=== PATIENT | male | born 1990 | race African-American/Black ===

== ENCOUNTER 2023-08-28 21:04 | Emergency (ER) | payer OTHER ==
[2023-08-28] MEDS ORDERED: Ondansetron PF 4 MG/2 ML Vial ONE (23:22)
[2023-08-28] MEDS ORDERED: Morphine 4 MG/ML VIAL ONE (23:22)
[2023-08-28] MEDS ORDERED: Famotidine/PF 20 mg/2ml Vial ONE (23:23)
[2023-08-28 23:28] LABS: Bilirubin Neg (Negative); Blood, Urine Negative (Negative); Clarity Clear (Clear); Glucose, Urine (Dipstick) Normal (Negative); Ketone, Urine Negative (Negative); Leukocyte Negative (Negative); Nitrite Negative (Negative); Protein, Urine (Dipstick) 30 mg/dl (Neg-Trace); Specific Gravity, Urine 1.015 (1.005-1.030)
[2023-08-28] MEDS ORDERED: Lidocaine 2% Viscous Solution 10 ML, Aluminum & Magnesium Hydroxide 30 ML SSW SCH (23:30)
[2023-08-28 23:45] LABS: CAUTI Indications for Culture Pelvic or flank pain; RBC/HPF 0-3 HPF (0-3); Squamous Epithelial None Seen HPF (0-3); WBC/HPF 0-3 HPF (0-3)
[2023-08-28 23:46] LABS: Bacteria/HPF None Seen HPF (None Seen)
[2023-08-28 23:48] LABS: Urine Culture Reflex No No
[2023-08-28 23:50] LABS: #Basophils 0.2 10x3/uL (0.0-0.2); #Monocytes 0.8 10x3/uL (0.0-1.1); #Neutrophils 7.4 10x3/uL (1.5-8.4); %Basophils 1.1 % (0.0-2.0); %Eosinophils 7.3 % (0.0-6.0); %Lymphocytes 30.1 % (18.0-47.0); %Neutrophils 53.1 % (40.0-75.0); Hematocrit 44.2 % (38.8-50.0); Hemoglobin 14.5 g/dL (13.5-17.5); Mean Corpuscular HGB CONC 32.8 g/dL (32.0-36.0); Mean Corpuscular Hemoglobin 28.8 pg (27.0-33.0); Mean Corpuscular Volume 87.7 fl (81.2-95.1); Mean Platelet Volume 9.4 fl (7.4-10.4); Platelet Count 470 10x3/uL (150-450); RBC Distribution Width 12.9 % (11.5-14.5); Red Blood Cell (RBC) Count 5.04 10x6/uL (4.32-5.72); White Blood Cell (WBC) Count 13.9 10x3/uL (3.5-10.5)
[2023-08-29 00:04] LABS: ALT (SGPT) 34 U/L (8-55); AST (SGOT) 18 U/L (5-34); Alkaline Phosphatase 95 U/L (40-110); Anion Gap 15 mmol/L (10-20); BUN (Urea Nitrogen) 11 mg/dL (8.9-20.6); Bilirubin, Total 0.2 mg/dL (0.2-1.2); Calc. Creatinine Clearance 0 mL/min (70-130); Calcium 8.9 mg/dL (7.8-10.44); Carbon Dioxide 23 mmol/L (22-29); Chloride 107 mmol/L (98-107); Estimated GFR 107; Globulin 3.2 g/dL (2.4-3.5); Glucose 137 mg/dL (70-105); Lipase 22 U/L (8-78); Potassium 4.1 mmol/L (3.5-5.1); Protein, Total 7.2 g/dL (6.0-8.3); Sodium 141 mmol/L (136-145)
[2023-08-29 00:07] LABS: Troponin I Less than 0.010 ng/mL (< 0.028)
== END 2023-08-29 02:20 | disposition home or self-care (01) ==
LOC: CSHERS 21:04
DX: R10.12 Left upper quadrant pain (principal); I10 Essential (primary) hypertension; J45.909 Unspecified asthma, uncomplicated
CPT/HCPCS: 71046; 80053; 81001; 83690; 83735; 84484; 85025; 85379; 93005; 96361; 96374; 96375; J2270; J2405; S0028